=== PATIENT | female | born 1940 | race Caucasian/White ===

== ENCOUNTER 2018-05-08 13:36 | Day surgery (SDC) | payer OTHER ==
[2018-05-08 14:22] LABS: ADD MAN DIFF? NO
[2018-05-08 14:24] LABS: BASOPHILS % 0.5 % (0.0-2.0); EOSINOPHILS # 0.2 10^3/ul (0.0-0.5); EOSINOPHILS % 3.6 % (0.0-7.0); HEMATOCRIT 38.8 % (37.0-47.0); HEMOGLOBIN 12.5 g/dl (12.0-16.0); LYMPHOCYTES # 2.1 10^3/ul (0.8-2.9); LYMPHOCYTES % 31.2 % (15.0-51.0); MEAN CORPUSCULAR HEMOGLOBIN 27.7 pg (29.0-33.0); MEAN CORPUSCULAR HGB CONC 32.2 g/dl (32.0-37.0); MEAN PLATELET VOLUME 9.2 fl (7.4-10.4); MONOCYTE # 0.5 10^3/ul (0.3-0.9); MONOCYTES % 7.5 % (0.0-11.0); NEUTROPHIL # 3.8 10^3/ul (1.6-7.5); PLATELET COUNT 288 10^3/UL (140-415); RED BLOOD COUNT 4.51 10^6/ul (4.20-5.40); RED CELL DISTRIBUTION WIDTH 12.4 % (11.5-14.5)
[2018-05-08 14:24] LABS: WHITE BLOOD COUNT 6.6 10^3/ul (4.8-10.8)
[2018-05-08 14:44] LABS: ANION GAP 12 (5-13); BLOOD UREA NITROGEN 15 mg/dl (7-20); CALCIUM 9.7 mg/dl (8.4-10.2); CARBON DIOXIDE 27 mmol/L (21-31); CHLORIDE 104 mmol/L (97-110); CREATININE 0.95 mg/dl (0.44-1.00); GLUCOSE 100 mg/dl (70-220); POTASSIUM 4.2 mmol/L (3.5-5.1); SODIUM 143 mmol/L (135-144)
[2018-05-08 14:50] LABS: INR 0.93; PROTIME 12.6 Sec (11.9-14.9)
[2018-05-08] MEDS ORDERED: MIDAZOLAM 1 MG/ML 2 ML INJ (16:10)
[2018-05-08] MEDS ORDERED: FENTAnyl 50 MCG/ML VIAL (16:10)
[2018-05-08] MEDS ORDERED: LIDOCAINE 1% (MDV) 20 ML INJ (16:10)
[2018-05-08] MEDS ORDERED: IODIXANOL LOCM 100 ML BTL (16:10)
[2018-05-08] MEDS ORDERED: HEPARIN 1000 UNITS/NS (A-LINE) 1,000 ML (16:10)
[2018-05-08] MEDS ORDERED: HEPARIN 1000 UNITS/ML 10 ML INJ (16:11)
[2018-05-08] MEDS ORDERED: VERAPAMIL 5 MG INJ (16:12)
[2018-05-08] MEDS ORDERED: NITROGLYCERIN (IC) 100 MCG/ML INJ (16:12)
[2018-05-08] MEDS ORDERED: SOD CHLORIDE 0.9% 1,000 ML IV (16:58)
== END 2018-05-08 18:57 | disposition home or self-care (01) ==
LOC: CCL 13:36 → SDS 13:36 → CCL 18:57
DX: R07.9 Chest pain, unspecified (principal); R06.02 Shortness of breath; I48.91 Unspecified atrial fibrillation
CPT/HCPCS: 80048; 82962; 85025; 85610; 93458

== ENCOUNTER 2018-07-16 21:12 | Emergency (ER) | payer OTHER ==
[2018-07-16] MEDS: AZITHROMYCIN 500MG/NS (PMX) 250 ML IV (01:09)
[2018-07-16] MEDS: ALBUTEROL 0.083% (NEB) 2.5 MG/3 ML AMP INH (23:50)
[2018-07-16] MEDS: IPRATROPIUM (NEB) 0.5 MG/2.5 ML AMP INH (23:50)
[2018-07-17 00:11] LABS: ADD MAN DIFF? NO
[2018-07-17 00:12] LABS: BASOPHIL # 0.1 10^3/ul (0.0-0.1); BASOPHILS % 0.4 % (0.0-2.0); EOSINOPHILS # 0.3 10^3/ul (0.0-0.5); EOSINOPHILS % 2.1 % (0.0-7.0); HEMOGLOBIN 12.3 g/dl (12.0-16.0); LYMPHOCYTES # 2.5 10^3/ul (0.8-2.9); LYMPHOCYTES % 17.9 % (15.0-51.0); MEAN CORPUSCULAR HEMOGLOBIN 27.6 pg (29.0-33.0); MEAN CORPUSCULAR HGB CONC 32.4 g/dl (32.0-37.0); MEAN CORPUSCULAR VOLUME 85.4 fl (82.0-101.0); MEAN PLATELET VOLUME 9.3 fl (7.4-10.4); MONOCYTE # 1.3 10^3/ul (0.3-0.9); MONOCYTES % 9.2 % (0.0-11.0); NEUTROPHIL # 9.9 10^3/ul (1.6-7.5); PLATELET COUNT 229 10^3/UL (140-415); RED BLOOD COUNT 4.45 10^6/ul (4.20-5.40); RED CELL DISTRIBUTION WIDTH 12.6 % (11.5-14.5)
[2018-07-17 00:12] LABS: WHITE BLOOD COUNT 14.1 10^3/ul (4.8-10.8)
[2018-07-17] MEDS: SODIUM CHLORIDE 0.9% 1L BAG IV* (00:15)
[2018-07-17] MEDS: CEFTRIAXONE 1 GM/50 ML (PMX) 50 ML IVPB (00:15)
[2018-07-17 00:39] LABS: ANION GAP 12 (5-13); BLOOD UREA NITROGEN 22 mg/dl (7-20); CALCIUM 9.3 mg/dl (8.4-10.2); CARBON DIOXIDE 27 mmol/L (21-31); CHLORIDE 98 mmol/L (97-110); CREATININE 1.27 mg/dl (0.44-1.00); GLUCOSE 108 mg/dl (70-220); SODIUM 137 mmol/L (135-144)
== END 2018-07-17 02:43 | disposition home or self-care (01) ==
LOC: E/R 07-17 02:43 → FTE 21:12
DX: J18.1 Lobar pneumonia, unspecified organism (principal); I10 Essential (primary) hypertension; N28.9 Disorder of kidney and ureter, unspecified; Z79.01 Long term (current) use of anticoagulants
CPT/HCPCS: 36415; 71045; 80048; 83605; 85025; 87040-91; 94664; 96365; 96375; 99284-25